=== PATIENT | female | born 1960 | race Caucasian/White ===

== ENCOUNTER 2019-06-19 14:15 | Outpatient (CLI) | payer BC, SELFPAY ==
--- NOTE | 2019-06-19 14:31 | XR_ITS ---
WS: [id number] Right knee, 3 views, 06/19/2019 Clinical Data: R KNEE PAIN INJURY Comparison: Right knee, 02/07/2011. Findings: No fractures or dislocations are seen. There is medial joint compartment narrowing with osteoarthriti c spurs of the medial femoral condyle and the medial tibial plateau. There is a small posterior super ior spur of the patella. The patella is intact. The soft tissues are unremarkable. XR/XR knee RT 3V* [id number] Impression: 1. Moderate osteoarthritis of the right knee with medial joint compartment narr owing and a posterior patellar spur. 2. Negative for fracture.
== END 2019-06-19 14:16 | disposition home or self-care (01) ==
PROVIDERS: Family Provider Family Medicine; PCP Family Medicine; Visit Provider Family Medicine
DX: M17.11 Unilateral primary osteoarthritis, right knee (principal); M25.561 Pain in right knee
CPT/HCPCS: 73562

== ENCOUNTER 2019-06-24 07:36 | Outpatient (CLI) | payer BC, SELFPAY ==
--- NOTE | 2019-06-24 09:11 | MR_ITS ---
WS: [id number] MRI RIGHT KNEE NONCONTRAST TECHNIQUE: Axial PD, coronal PD fat sat, coronal PD, sagittal PD, and sagittal PD fat-sat images obta ined. CLINICAL INFORMATION: KNEE INJURY, KNEE PAIN RIGHT COMPARISON: None. FINDINGS: Normal anterior cruciate ligament. Normal PCL. Moderate suprapatellar effusion. Mild prepatellar and infrapatellar soft tissue edema. Distal quadriceps and patella tendons are intact. Prior postoperative changes medial meniscus with blunting of the posterior horn. Chronic thinning of the medial meniscus. Horizontal tear anterior horn lateral meniscus extending to the articular surfac e. Hypertrophic changes along the joint line. Medial and lateral collateral ligaments are intact. Mod erate chondromalacia patella. Hypertrophic patella. No subchondral edema. MR/MR knee RT wo con* [id number] IMPRESSION: 1. Anterior and posterior cruciate ligaments are intact. 2. Horizontal tear involving the anterior horn lateral meniscus extending to t he articular surface. 3. Prior medial meniscectomy. Chronic thinning of the medial meniscus. 4. Tiny amount of subchondral edema involving the medial joint articular surfa katie. Moderate to advanced chondromalacia medial joint compartment. 5. Moderate chondromalacia patella.
== END 2019-06-24 07:37 | disposition home or self-care (01) ==
LOC: RADSHAW 07:40
PROVIDERS: Family Provider Family Medicine; PCP Family Medicine; Visit Provider Family Medicine
DX: S83.281A Other tear of lateral meniscus, current injury, right knee, initial encounter (principal); X58.XXXA Exposure to other specified factors, initial encounter; M94.261 Chondromalacia, right knee; M25.561 Pain in right knee
CPT/HCPCS: 73721

== ENCOUNTER 2019-08-13 07:32 | Day surgery (SDC) | payer BC, SELFPAY ==
[2019-08-12 10:55] VITALS: BMI 42.9
[2019-08-13] VITALS (13 sets, daily range): BP systolic 117–172; BP diastolic 74–109; PULSE 70–83; RESP 10–18; TEMP 36.2–37.1; O2SAT 92–98
[2019-08-13 08:18] LABS: Glucose Point of Care 166 mg/dL (70-110)
[2019-08-13] MEDS: lidocaine 1% INJ 20 mL INTRADERMA (08:25)
[2019-08-13] MEDS: sodium chloride 0.9% 1,000 ML 30 ML IV (08:26)
--- NOTE | 2019-08-13 08:40 | ANES.PREANE2 ---
Pre-Anesthetic Assessment Pre-Anesthetic Assessment: Height/Weight: Height 1.68 m Weight 120.656 kg Temp Pulse Resp BP Pulse Ox 98.7 F 70 18 144/91 95 08/13/19 07:44 08/13/19 07:44 08/13/19 07:44 08/13/19 07:44 08/13/19 07:44 Preop Diagnosis: Right knee lateral meniscus tear Proposed Procedure: Operation Date: 08/13/19 09:00 Proposed Procedures p Right knee arthroscopy with lateral meniscectomy 00204 S83.281A(Right) - Maurilio Avilez DO Last intake: Intake Last Liquid Date 08/12/19 Last Solid Date 08/12/19 Last Intake: 12:00 Social: Social History: No alcohol and No tobacco Exam: Pre-Anes Outpt Exam: alert, oriented x 3, clear to auscultation bilaterally and regular rate & rhythm Airway: Submandibular: WNL Cervical ROM: WNL MP: 2 Additional comments: previoius cervical spine fusion History/ROS: No significant history except as noted CV/HEM: CV/HEM: HTN GI: GI: GERD Metabolic: Metabolic: DM Neuropsych: Neuropsych: Anxiety and Depression Anesthetic Plan: ASA status: 3 Anesthesia: Anesthesia Evaluation and General Risk of > 500 ml blood loss (7ml/kg in children): No Meds/Allergies Current Medications: Current Medications Generic Name Dose Route Start Last Admin Trade Name Freq PRN Reason Stop Dose Admin Sodium Chloride 1,000 mls @ 30 ml s/hr 08/13/19 07:45 08/13/19 08:26 Sodium Chloride 0.9% IV 08/14/19 07:44 30 mls/hr .Q24H JUNIOR Administration Lidocaine HCl 0.1 ml 08/13/19 07:43 08/13/19 08:25 Lidocaine 1% INTRADERMA 08/14/19 07:42 0.1 ml PRN PRN Administration anesthetic prior to IV start Data Anesthesia Other Labs: Laboratory Results - last 48 hr 08/13/19 08:15 POC Glucose 166 Cardiac Studies: No Data to Display
--- NOTE | 2019-08-13 08:59 | W.PM.OPSUD ---
Surgery/Procedure H&P Update DATE OF PROCEDURE: August 13, 2019 DATE H&P PERFORMED: 08/05/19 H&P UPDATE INFORMATION: I have reviewed H&P completed within last 30 days, I have examined patient prior to procedure and No changes to prior documentation PREOP DIAGNOSIS: Right knee lateral meniscus tear PRIMARY INDICATION FOR PROCEDURE: as above PLANNED PROCEDURE: Operation Date: 08/13/19 09:00 Proposed Procedures p Right knee arthroscopy with lateral meniscectomy 63400 S83.281A(Right) - Maurilio Avilez DO
--- NOTE | 2019-08-13 09:01 | P.OP_ITS ---
Operative Report Date of procedure: August 13, 2019 Pre-op Diagnosis: Right knee lateral meniscus tear Post-op diagnosis: other Post-op Diagnosis: Right knee medial and lateral meniscal tears Post-op Findings: Grade 3 to early grade 4 changes on medial femoral condyle and medial tibial plateau Significant fraying with displacement of fibers into the joint of the medial meniscus at its midportion. Anterior and posterior cruciate ligaments intact both visually probe Significant free edge fraying beginning at the posterior horn extending to the anterior horn of the lateral meniscus articular cartilage well preserved and lateral compartment patellofemoral cartilage well preserved. Moderate synovitis throughout the knee joint. No loose bodies encountered. Procedure Done: Diagnostic arthroscopy right knee with section of medial and lateral meniscal tears Implants: none Pathology: none sent Surgeon: Maurilio Avilez Anesthesia: General Estimated blood loss (mL): 5 Tourniquet time (min): 35 (At 300 mmHg pressure) Complications: No apparent complications. Condition: stable Disposition: PACU Brief History: 59-year-old white female with chronic right knee pain. In the past she is undergone 2 arthroscopies for medial meniscal tears. Plain film x- ray she has joint space narrowing medially but not [id number]. She is undergone an MRI which shows some arthritic change as well as an anterior horn tear of the lateral meniscus. Physical examination suggestive of meniscal pathology both medially and laterally. Patient is failed conservative treatment with activity modification and oral analgesics. Risk, benefits potential complications are discussed the patient. Risks include are not limited to: Failure of all pain, infection, nerve/blood vessel/injury, blood clots, heart attack, stroke risk up to including . All questions answered patient agreeable to proceed with surgery. Procedure: 1.5 g Zinacef
[2019-08-13] MEDS: cefUROXime 1,500 MG in sodium chloride 0.9% (plus) 50 ML 100 MG IV (09:17)
[2019-08-13] MEDS: midazolam 1 mg/mL INJ 2 mL 2 MG IVP (09:27)
[2019-08-13] MEDS: EPINEPHrine 1 mg/mL INJ 3 MG XX (09:43)
[2019-08-13] MEDS: triamcinolone 40 mg/mL SDV IM (09:43)
[2019-08-13] MEDS: neomycin-poly-bacitracin oint 28 gm 1 APPLIC TOPICAL (10:06)
[2019-08-13] MEDS: fentaNYL 50 mcg/mL INJ 2mL IVP (10:40)
[2019-08-13] MEDS: oxyCODONE-APAP 5-325 mg Tablet 1 TAB PO (11:31)
== END 2019-08-13 12:22 | disposition home or self-care (01) ==
PROVIDERS: PCP Family Medicine; Visit Provider Orthopaedic Surgery
PROC: (CPT 29870; principal; 2019-08-13 09:00)
DX: S83.281A Other tear of lateral meniscus, current injury, right knee, initial encounter (principal); S83.241A Other tear of medial meniscus, current injury, right knee, initial encounter; I10 Essential (primary) hypertension; K21.9 Gastro-esophageal reflux disease without esophagitis; E11.9 Type 2 diabetes mellitus without complications
CPT/HCPCS: 29880; 12345; 36416; 82962; 96365; 96372; 96374; J0131; J0171; J0697; J1885; J2001; J2250; J2405; J2704; J2795; J3010; J3301; J7030

== ENCOUNTER 2019-09-02 14:43 | Outpatient (CLI) | payer BC, SELFPAY | END 2019-09-02 14:44 | disposition home or self-care (01) | LOC: SPT 14:43 | PROVIDERS: PCP Family Medicine; Visit Provider Orthopaedic Surgery | DX: Z46.89 Encounter for fitting and adjustment of other specified devices (principal); S83.281D Other tear of lateral meniscus, current injury, right knee, subsequent encounter; X58.XXXD Exposure to other specified factors, subsequent encounter | CPT/HCPCS: 97760; L1812 ==

== ENCOUNTER → 2020-01-25 10:23 | Outpatient (BNVA) | payer BC, SELFPAY | PROVIDERS: PCP Family Medicine; Visit Provider Nurse Practitioner Family | DX: I50.30 Unspecified diastolic (congestive) heart failure (principal); I10 Essential (primary) hypertension | CPT/HCPCS: 80048; 83880 ==

== ENCOUNTER 2020-02-01 08:00 | Outpatient (CLI) | payer BC, SELFPAY ==
--- NOTE | 2020-02-01 08:30 | ECG_ITS ---
[facility] Test Date: 2020-02-01 Pat Name: Sunitha Rose Department: Room: Gender: Female Senior Director Of Strategy: Natacha Mccormick : 1960 Requested By: Nuris Siddiqui Order Number: [id number] Prince MD: MARY ALICE MANDUJANO Interpretive Statements NAME OF STUDY: LEXISCAN SESTAMIBI STRESS TEST INDICATION: Chest Pain NOTE: Please note that this is the electrocardiogram portion of the Lexiscan/Sestamibi stress test. The perfusion scan will be documented separately. DATA: Baseline heart rate was 83 beats per minute. Baseline blood pressure was 144/87 millimeters of mercury. Target heart rate was 163. Maximum heart rate achieved was 90. which was 55 % of the predicted target heart rate. Maximum blood pressure was 162/91 millimeters of mercury. The reason for ending the test was completion of the protocol. The patient did not experience any symptoms. ELECTROCARDIOGRAM: BASELINE: Sinus rhythm. Normal axis. Otherwise, no ST-T changes suggestive of ischemia noted. No arrhythmia noted. EXERCISE: After Lexiscan injection, no ST-T changes suggestive of ischemic noted. No arrhythmia noted. 1. EKG not suggestive of ischemia 2. Lexiscan injection unremarkable. 3. Perfusion scan will be documented separately. Electronically Signed On 02-19-2020 15:15:29 VEHICLE CARE SPECIALIST by MARY ALICE MANDUJANO [email or web address]
--- NOTE | 2020-02-01 08:32 | NMCV_ITS ---
NM eugenio perf SPECT r/s* [id number] Sunitha Rose Age: 59 Gender: F : 1960 Exam Date: 02/01/2020 09:10 Ordering Phys: Nuris Siddiqui Technologist: LILIBETH Mariano Exam Location: [facility] Indications: FATIGUE SHORTNESS OF BREATH STRESS TEST [facility] IMAGE PROTOCOL Rest/Stress 1 Lexiscan Day Radiopharmaceutical Dose (mCi) Administration Site Administered by Rest: Tc-99m 10.6 IV LILIBETH Adan Sestamibi Stress:Tc-99m 32.8 IV LILIBETH Adan Sestamibi Rest: 01-Feb-2020 60 Discovery 630 Stress: 01-Feb-2020 60 Discovery 630 0.4mg Lexiscan. Images obtained in supine and prone position. SPECT RESULTS Technical Quality: Good Raw Data Analysis: Breast attenuation, Soft tissue attenuation Image Corrections: No attenuation or motion correction applied Summed Stress Score: 0 Summed Rest Score: 3 Summed Difference Score: 0 PERFUSION FINDINGS Medium-sized area of fixed perfusion defect with moderate reversibility noted in mid to distal anteroseptal wall suggestive of medium-sized area of old myocardial infarction surrounded by moderate tee-infarct ischemia. Please note that patient was not able to perform the prone images therefore cannot rule out artifact. There is no wall motion abnormality. FUNCTIONAL RESULTS (calculated via Gated SPECT) Stress Image LV EF (%): 67 Stress EDV (mL):116 TID: 1.01 Stress ESV (mL):38 Rest Image LV EF (%): 67 FUNCTIONAL FINDINGS: There is normal left ventricular systolic function. IMPRESSIONS Medium-sized area of fixed perfusion defect with moderate reversibility noted in mid to distal anteroseptal wall suggestive of medium-sized area of old myocardial infarction surrounded by moderate tee-infarct ischemia. Please note that patient was not able to perform the prone images therefore cannot rule out artifact. There is no wall motion abnormality. Escobar Roche MD (Electronically Signed) Final Date: 01 February 2020 13:17 S
[2020-02-01 08:33] VITALS: BMI 45.1
[2020-02-01 10:00] VITALS: BP 149/86; PULSE 85
[2020-02-01] MEDS: regadenoson 0.4 Mg/5 ml Syringe IVP (10:00)
== END 2020-02-01 08:01 | disposition home or self-care (01) ==
LOC: CDL 08:08
PROVIDERS: PCP Family Medicine; Visit Provider Nurse Practitioner Family
DX: R53.83 Other fatigue (principal); R06.02 Shortness of breath
CPT/HCPCS: 78452; 93017; A9500; J2785

== ENCOUNTER → 2020-02-15 09:27 | Outpatient (BNVA) | payer BC, SELFPAY | PROVIDERS: PCP Family Medicine; Visit Provider Internal Medicine Cardiovascular Disease | DX: I50.32 Chronic diastolic (congestive) heart failure (principal); Z20.828 Contact with and (suspected) exposure to other viral communicable diseases; Z11.59 Encounter for screening for other viral diseases; I50.30 Unspecified diastolic (congestive) heart failure | CPT/HCPCS: 80048; 85025; 85610; 87635 ==

== ENCOUNTER 2020-02-18 07:41 | Day surgery (SDC) | payer BC, SELFPAY ==
[2020-02-18] VITALS (16 sets, daily range): BP systolic 112–155; BP diastolic 55–117; PULSE 66–84; RESP 13–23; TEMP 36.2; O2SAT 91–99; BMI 45.6
--- NOTE | 2020-02-18 08:00 | XACV_ITS ---
Ht: 168 cm Wt: 128 kg BSA: 2.52 m2 Gender: Female : 1960 Any Known Allergies: Other Exam Priority: Routine Procedure(s): Procedure Description: Diagnostic procedure Procedure Description: Right Heart Catheterization Procedure Description: O2 saturation Procedure Description: Coronary Angiography Procedure Description: Pressure Wire Diagnostic Cath Status: Elective Conclusions 1. Right heart cathMildly elevated right-sided filling pressure RA mean 12 limit of mercuryNormal RV pressure 28/ 0 mmHgNormal PA pressure 24 mmHg PA mean. 2. FFR: After equalizing the distal and proximal pressure of FFR wire proximal to the lesion, Prox RCA lesion was crossed with FFR wire. IV adenosine at rate of 140 mcg/min was started. Patient did not compliant of any symptoms, at then end of two minutes FFR was recorded as, which is not significant . 3. Indication for left and right heart cath 4. , unexplained shortness of breath despite of 5. optimization of medicine. Abnormal stress test. Recommendations * Usual post-cath care. Diagnostic RX Recommendation: medical therapy and/or counseling Pressures Phase:Rest AO : 116 / 79 ( 96 ) @ 3:42:00 AM RV : 28 / 0 / @ 3:35:00 AM PA : 34 / 19 ( 24 ) @ 3:33:00 AM RA : a wave = v wave = mean = 12 @ 3:36:00 AM O2 Content Phase:Rest PA : O2 Content O2: 61.4 @ 3:42:00 AM Saturations Phase:Rest RA : 60 @ 3:37:00 AM RV : 61 @ 3:33:00 AM PA : 61 @ 3:42:00 AM Clinical Evaluation EBL: 5mL-10mL Procedural Details Procedure Consent Obtained. Pre-Procedure Time Out. Identified patient by full name and date of as verbalized by the patient/guarantor. Does the consent match the physician's order: Yes. Accurate & Complete Informed Consent: Yes. Inpatient/Outpatient History & Physical on Chart: Yes. If H&P is completed, is and addenduem needed: No; If yes, is the addendum complete: N/A. Visualize and Verify Site with Patient/Guarantor: N/A. Relevant Radiology Images available: N/A. Pre-op teaching completed and patient verbalized understanding. The risks, benefits, and alternatives of sedation and/or procedure were discussed by physician. The patient agrees to continue. Procedure started. [facility] Clinical Fraility Score: 3: Managing Well. Market Research Assistant Indications: Worsening Angina, abnormal stress test, SOB. Chest Pain Symptom Assessment: Atypical Angina. Cardiovascular Instability: No. Correct patient, site and procedure confirmed by cath team. PERRLA. Strong, equal hand ibm bpm architect bilaterally. Lungs clear x 5 lobes. IV Site on Arrival: 20 gauge in the right anticubital. IV Site on Arrival: 20 gauge in the left anticubital. IV Fluids: 0.9% NaCl at KVO. 0 mL infused prior to manager lab. Pre Procedural Pulses: bilateral dorsalis pedis was 3+. Pre Procedural Pulses: bilateral posterior tibial was 3+. Pre Procedural Pulses: right radial was 1+. Pre Procedural Pulses: left radial was 3+. bilateral groins was prepped with chloroprep then draped in the usual sterile fashion. right radial was prepped with chloroprep then draped in the usual sterile fashion. right brachial was prepped with chloroprep then draped in the usual sterile fashion. Equipment: 6F - Radial. Cardiac Cath Pack. ACIST Manifold Kit Model BT 2000. Heparinized Saline (2 units/mL), 1000 mL bag. Physician notified. Baseline sample Acquired. HR: 64 BPM. Physician arrived. Physician scrubbed in. Immediate Pre-Procedure Time Out. Correct Patient: Yes; Correct Procedure: Yes; Correct Site: Yes; Correct Patient Position: Yes; Correct Supplies: Yes; Dried Flammable Prep: Yes; Blood Products Available: N/A;. Lidocaine 1% infiltrated to the right brachial. Wire inserted through IV catheter in right brachial vein. IV Catheter removed over wire. [place] MON catheter inserted. [place] out. Lidocaine 1% infiltrated to the right radial. Arterial access obtained. A [employer] 5 Fr Robert Radial Catheter, 110cm was advanced over the wire and used for Left coronary angiography. Multiple views taken of left coronary artery. Catheter redirected to the RCA. Catheter out. Inventory is CRD 6FR AL .75 GUIDE. 6 guamanian AL 0.75 guide catheter was inserted over the wire. FFR guidewire was advanced through the guide catheter to lesion in the prox RCA. Wire out. Guide catheter out. Sheath flushed periodically to maintain patency. Physician scrubbed out. A Manual Compression was successful obtaining hemostatsis at the Right Brachial Vein insertion site. A TR Band was successful obtaining hemostatsis at the Right Radial artery insertion site. TR band placed. Hemostasis obtained. Post Procedure: Pulses reassessed and unchanged. PERRLA. Strong, equal hand ibm bpm architect bilaterally. No VTE prophylaxis required. Medication's Wasted: Lidocaine 1% = 8 mL. Medication's Wasted: Heparin = 1000 units. Medication's Wasted: Other = adenosine 54 mg. Total IV fluids: 75 mL. Contrast type used: Omnipaque 300 mgI/mL, 500 mL bottle. Post-op diagnosis: non obstructive CAD. Complications: none. Estimated blood loss: 5mL-10mL. Procedure completed. Patient transferred by wheelchair to CPRU. Vital chart was stopped. Access Site Site: Right Brachial Vein Sheath Size: 6 Fr Hemostasis Method: Manual Compression Hemostasis Success: Successful Site: Right Radial artery Sheath Size: 6 Fr Hemostasis Method: TR Band Hemostasis Success: Successful Procedure Medications Start: 9:04 AM Stop: 9:04 AM Medication: Fentanyl Amount: 50 mcg Route: I.V. Start: 9:19 AM Stop: 9:19 AM Medication: Versed Amount: 1 mg Route: I.V. Start: 9:24 AM Stop: 9:24 AM Medication: Versed Amount: 1 mg Route: I.V. Start: 9:26 AM Stop: 9:26 AM Medication: Fentanyl Amount: 50 mcg Route: I.V. Start: 9:34 AM Stop: 9:34 AM Medication: Versed Amount: 1 mg Route: I.V. Start: 9:38 AM Stop: 9:38 AM Medication: Versed Amount: 1 mg Route: I.V. Start: 9:42 AM Stop: 9:42 AM Medication: Heparin Amount: 5000 units Route: I.V. Start: 9:47 AM Stop: 9:47 AM Medication: Versed Amount: 1 mg Route: I.V. Start: 9:59 AM Stop: 9:59 AM Medication: Versed Amount: 1 mg Route: I.V. I, the attending physician, have reviewed and verified all procedure medications. Yes, all medications given per verbal order History/Risk Factors Hypertension: Yes Dyslipidemia: No Peripheral Arterial Disease (PAD): No Myocardial Infarction (TX): No Obesity: Yes Renal Disease: No Tobacco Use: Never Prior Interventions PCI: No CABG: No Valve Surgery: No Report Signatures Finalized by Escobar Roche MD on 03/03/2020 05:03 PM
[2020-02-18] MEDS: diphenhydrAMINE 50 mg Capsule PO (08:30)
--- NOTE | 2020-02-18 09:21 | W.PM.OPSUD ---
Surgery/Procedure H&P Update DATE OF PROCEDURE: February 18, 2020 DATE H&P PERFORMED: 02/04/20 H&P UPDATE INFORMATION: I have reviewed H&P completed within last 30 days, I have examined patient prior to procedure and No changes to prior documentation PREOP DIAGNOSIS: Abnormal stress test, chest pain, worsening of shortness of breath PLANNED PROCEDURE: Operation Date: 02/18/20 08:30 Proposed Procedures p Cardiac Catheterization(Bilateral) - Escobar Roche MD PATIENT REASSESSED PRIOR TO SEDATION, WITH NO CHANGE NOTED: Yes PHYSICAL EXAM: alert, oriented x 3, clear to auscultation bilaterally and regular rate & rhythm AIRWAY EVAL/ANESTHESIA PLAN: ASA II, Risks, benefits & alternatives of sedation and/or procedure discussed and Patient agrees to continue as planned
--- NOTE | 2020-02-18 10:15 | PC.NURSE ---
recovery note received patient back from equipment operator/laborer via wheelchair s/p diagnostic lhc via radial approach. pt ambulated to bed without incident. pt drowsy but a&o x3. monitor car operator placed and vital signs obtained. right wrist with tr band intact. no bleeding or hematoma noted. palpable right radial pulse. verbal instructions given to patient about activity restrictions with right wrist. pt verbalized understanding. no other assessment changes noted at this time. will continue to monitor.
--- NOTE | 2020-02-18 11:00 | USCV_ITS ---
Sunitha Rose Age: 59 Gender: F : 1960 Exam Date: 02/18/2020 11:39 Ordering Phys: Escobar Roche MD ([email or web address]) Technologist: Ashley James Exam Location: [facility] [place] Indication: SOB BP: 121 / 73 HR: 66 Rhythm: Sinus Technical Quality: Technically difficult study MEASUREMENTS (Male / Female) Normal Values 2D ECHO LV Chamber Size 4.8 cm RV Chamber Size 2.1 cm LVOT Diameter 2.0 cm LA Diameter 3.8 cm LA Width 2.7 cm LA Height 4.8 cm RA Width 2.7 cm RA Height 3.7 cm Aorta at Sinotubular Diameter 3.3 cm M-MODE LV Diastolic Diameter MM 4.9 cm 4.2 - 5.9 / 3.9 - 5.3 cm LV Systolic Diameter MM 2.7 cm LV Ejection Fraction MM Teich 76.6 % IVS Diastolic Thickness MM 1.6 cm 0.6 - 1.0 / 0.6 - 0.9 cm IVS Systolic Thickness MM 1.8 cm LVPW Diastolic Thickness MM 1.3 cm 0.6 - 1.0 / 0.6 - 0.9 cm LVPW Systolic Thickness MM 1.5 cm Aortic Annulus Diameter 3.2 cm LA Ao Ratio MM 1.3 MV E Point Septal Separation 0.6 cm DOPPLER AV Peak Velocity 106.0 cm/s LVOT Peak Velocity 79.0 cm/s AV Area Cont Eq vti 2.9 cm squared AV Area Cont Eq pk 2.4 cm squared MV Area PHT 4.0 cm squared Mitral E to A Ratio 1.0 MV E' Velocity 37.5 cm/s Mitral E to MV E' Ratio 12.5 Mitral E to LV E' Lateral Ratio 15.2 Mitral E to LV E' Septal Ratio 10.8 TV Peak E Velocity 53.0 cm/s PV Peak Velocity 55.0 cm/s FINDINGS Left Ventricle Normal left ventricular cavity size. Moderate left ventricular hypertrophy of concentric type. No regional wall motion abnormalities. Left ventricular ejection fraction is estimated at 60 %. Grade I/IV diastolic dysfunction (abnormal relaxation filling pattern), normal to mildly elevated filling pressures. Right Ventricle The right ventricle is normal in size and function. RVSP could not be calculated due to incomplete tricuspid regurgitation velocity profile. Right Atrium The right atrium is normal in size. Left Atrium The left atrium is normal in size. Mitral Valve Structurally normal mitral valve without significant stenosis or prolapse. There is no mitral regurgitation. Aortic Valve Mild aortic valve calcification. No aortic valve stenosis. Trace aortic valve regurgitation. Tricuspid Valve Trace tricuspid valve regurgitation. Pulmonic Valve Structurally normal pulmonic valve without significant stenosis. There is no pulmonic regurgitation. Pericardium Normal pericardium without effusion. Aorta Normal ascending aorta dimension. CONCLUSIONS 1-Normal left ventricular cavity size. Moderate left ventricular hypertrophy of concentric type. No regional wall motion abnormalities. Left ventricular ejection fraction is estimated at 60 %. Grade I/IV diastolic dysfunction (abnormal relaxation filling pattern), normal to mildly elevated filling pressures. 2-There is no pericardial effusion. 3-No significant chamber abnormalities. 4-The right ventricle is normal in size and function. RVSP could not be calculated due to incomplete tricuspid regurgitation velocity profile. 5-Right atrial pressure is around 5 mm of mercury. 6-No significant change since the prior echocardiogram study of 10/26/2013. Escobar Roche MD (Electronically Signed) Final Date: 18 February 2020 17:47 S
--- NOTE | 2020-02-18 11:15 | PC.NURSE ---
tr band vitals taken and stable. tr band intact and dry. 1 ml of air removed to begin removal of tr band.
--- NOTE | 2020-02-18 12:16 | USCV_ITS ---
Sunitha Rose Age: 59 Gender: F : 1960 Exam Date: 02/18/2020 11:39 Ordering Phys: Escobar Roche MD Technologist: Ashley James Exam Location: [facility] – [place] Indication: SOB BP: 121 / 73 HR: 66 Rhythm: Sinus Technical Quality: Technically difficult study MEASUREMENTS (Male / Female) Normal Values 2D ECHO LV Chamber Size 4.8 cm RV Chamber Size 2.1 cm LVOT Diameter 2.0 cm LA Diameter 3.8 cm LA Width 2.7 cm LA Height 4.8 cm RA Width 2.7 cm RA Height 3.7 cm Aorta at Sinotubular Diameter 3.3 cm M-MODE LV Diastolic Diameter MM 4.9 cm 4.2 - 5.9 / 3.9 - 5.3 cm LV Systolic Diameter MM 2.7 cm LV Ejection Fraction MM Teich 76.6 % IVS Diastolic Thickness MM 1.6 cm 0.6 - 1.0 / 0.6 - 0.9 cm IVS Systolic Thickness MM 1.8 cm LVPW Diastolic Thickness MM 1.3 cm 0.6 - 1.0 / 0.6 - 0.9 cm LVPW Systolic Thickness MM 1.5 cm Aortic Annulus Diameter 3.2 cm LA Ao Ratio MM 1.3 MV E Point Septal Separation 0.6 cm DOPPLER AV Peak Velocity 106.0 cm/s LVOT Peak Velocity 79.0 cm/s AV Area Cont Eq vti 2.9 cm squared AV Area Cont Eq pk 2.4 cm squared MV Area PHT 4.0 cm squared Mitral E to A Ratio 1.0 MV E' Velocity 37.5 cm/s Mitral E to MV E' Ratio 12.5 Mitral E to LV E' Lateral Ratio 15.2 Mitral E to LV E' Septal Ratio 10.8 TV Peak E Velocity 53.0 cm/s PV Peak Velocity 55.0 cm/s FINDINGS Left Ventricle Normal left ventricular cavity size. Moderate left ventricular hypertrophy of concentric type. No regional wall motion abnormalities. Left ventricular ejection fraction is estimated at 60 %. Grade I/IV diastolic dysfunction (abnormal relaxation filling pattern), normal to mildly elevated filling pressures. Right Ventricle The right ventricle is normal in size and function. RVSP could not be calculated due to incomplete tricuspid regurgitation velocity profile. Right Atrium The right atrium is normal in size. Left Atrium The left atrium is normal in size. Mitral Valve Structurally normal mitral valve without significant stenosis or prolapse. There is no mitral regurgitation. Aortic Valve Mild aortic valve calcification. No aortic valve stenosis. Trace aortic valve regurgitation. Tricuspid Valve Trace tricuspid valve regurgitation. Pulmonic Valve Structurally normal pulmonic valve without significant stenosis. There is no pulmonic regurgitation. Pericardium Normal pericardium without effusion. Aorta Normal ascending aorta dimension. CONCLUSIONS 1-Normal left ventricular cavity size. Moderate left ventricular hypertrophy of concentric type. No regional wall motion abnormalities. Left ventricular ejection fraction is estimated at 60 %. Grade I/IV diastolic dysfunction (abnormal relaxation filling pattern), normal to mildly elevated filling pressures. 2-There is no pericardial effusion. 3-No significant chamber abnormalities. 4-The right ventricle is normal in size and function. RVSP could not be calculated due to incomplete tricuspid regurgitation velocity profile. 5-Right atrial pressure is around 5 mm of mercury. 6-No significant change since the prior echocardiogram study of 10/26/2013. Escobar Roche MD Edited by: CV Liquor Gallery Operator (Electronically Signed) Final Date: 18 February 2020 17:47 Amended: 23 February 2020 13:19 C
== END 2020-02-18 13:53 | disposition home or self-care (01) ==
PROVIDERS: PCP Family Medicine; Visit Provider Internal Medicine Cardiovascular Disease
DX: R94.39 Abnormal result of other cardiovascular function study (principal); R07.9 Chest pain, unspecified; R06.02 Shortness of breath; E66.9 Obesity, unspecified; Z68.42 Body mass index [BMI] 45.0-49.9, adult; I11.0 Hypertensive heart disease with heart failure; I50.30 Unspecified diastolic (congestive) heart failure; G47.33 Obstructive sleep apnea (adult) (pediatric); E11.9 Type 2 diabetes mellitus without complications; Z79.84 Long term (current) use of oral hypoglycemic drugs
CPT/HCPCS: 12345; 36415; 93306; 93456; 93571; C1751; C1769; C1887; C1894; J0153; J1644; J2250; J3010; J3490; J7030; Q0163; Q9967

== ENCOUNTER → 2020-02-25 10:25 | Outpatient (BNVA) | payer BC, SELFPAY | PROVIDERS: PCP Family Medicine; Visit Provider Nurse Practitioner Family | DX: I10 Essential (primary) hypertension (principal); Z13.220 Encounter for screening for lipoid disorders | CPT/HCPCS: 80048; 80061 ==

== ENCOUNTER → 2020-03-09 19:12 | Outpatient (BNVA) | payer BC, SELFPAY | PROVIDERS: PCP Family Medicine; Visit Provider Internal Medicine Cardiovascular Disease | DX: R94.39 Abnormal result of other cardiovascular function study (principal) | CPT/HCPCS: 87635 ==

== ENCOUNTER 2020-03-14 07:11 | Outpatient (CLI) | payer BC, SELFPAY ==
--- NOTE | 2020-03-14 12:40 | PFTS_ITS ---
Date of Study:03/14/20 Date of Dictation: MECHANICS: Forced vital capacity (FVC) is normal. Forced expiratory volume in one second (FEV1) is . FEV1/FVC is normal. FLOW VOLUME LOOP: Normal. LUNG VOLUMES: Total lung capacity (TLC) is normal. Residual volume (RV) is normal. DIFFUSING CAPACITY FOR CARBON MONOXIDE: Normal. INTERPRETATION: The pulmonary function tests are normal. Lung volumes are normal. Gas exchange (DLCO) is normal. MTDD
== END 2020-03-14 07:12 | disposition home or self-care (01) ==
LOC: RT 07:14
PROVIDERS: PCP Family Medicine; Visit Provider Internal Medicine Cardiovascular Disease
DX: R06.02 Shortness of breath (principal)
CPT/HCPCS: 94010; 94726; 94729

== ENCOUNTER → 2020-07-05 14:58 | Outpatient (BNVA) | payer BC, SELFPAY | PROVIDERS: PCP Family Medicine; Referring Provider Family Medicine; Visit Provider Internal Medicine | DX: E11.9 Type 2 diabetes mellitus without complications (principal); E66.01 Morbid (severe) obesity due to excess calories; Z68.41 Body mass index [BMI] 40.0-44.9, adult; E78.5 Hyperlipidemia, unspecified | CPT/HCPCS: 99204 ==

== ENCOUNTER 2020-07-11 07:52 | Outpatient (CLI) | payer BC, SELFPAY ==
--- NOTE | 2020-07-11 08:45 | MR_ITS ---
WS: [id number] MRI BRAIN WITHOUT CONTRAST HISTORY: TREMOR OF LEFT HAND COMPARISON: CT head 07/22/2013 TECHNIQUE: Diffusion imaging, multiplanar T1, T2 and FLAIR imaging obtained. Mild limitation due to quality secondary to motion artifact. No evidence for acute infarct or hemorrhage. Lee-white matter differentiation is normal. Normal widt h of the pars compacta. No iron deposition noted in the putamen. There are a few areas of increased signal in the periventricular white matter. No thinning of the cor pus callosum. No significant atrophy or volume loss otherwise. Ventricles and extra-axial spaces are normal. No inferior displacement of cerebellar tonsils. The sella turcica and pituitary gland are unremarkabl e. Posterior fossa is also unremarkable. Dural venous sinuses and [place] demonstrate no abnormality on this unenhanced studies. Paranasal sinuses: Clear. Mastoid air cells: Normal. Calvarium and scalp: Intact. MR/MR head wo con* [id number] IMPRESSION: 1. No acute infarct or hemorrhage. 2. No iron deposition in the putamen and normal width of the pars compacta. 3. Mild chronic microvascular ischemic type changes.
== END 2020-07-11 07:53 | disposition home or self-care (01) ==
LOC: RADWPI 08:00
PROVIDERS: PCP Family Medicine; Visit Provider Surgery Surgical Critical Care
DX: R25.1 Tremor, unspecified (principal); I67.82 Cerebral ischemia
CPT/HCPCS: 70551

== ENCOUNTER 2020-09-06 18:06 | Outpatient (CLI) | payer BC, SELFPAY ==
--- NOTE | 2020-09-06 18:16 | XR_ITS ---
WS: [id number] Left hand, 3 views, 09/06/2020 Clinical Data: LT. HAND PAIN Comparison: Left wrist, 11/18/2014. Findings: No fractures or dislocations are seen. The soft tissues are unremarkable. The joint spaces are normal XR/XR hand LT min 3V* [id number] Impression: Negative left hand.
--- NOTE | 2020-09-06 18:19 | XR_ITS ---
WS: [id number] Left ankle, 3 views, 09/06/2020 Clinical Data: LT. ANKLE PAIN Comparison: None. Findings: No fractures or dislocations are seen. The ankle mortise is normal. The talus and calcaneus are unrem arkable. There is soft tissue swelling over the lateral malleolus. There is a plantar spur and an Ach illes spur. XR/XR ankle LT min 3V* [id number] Impression: 1. Negative for left ankle fracture. 2. Soft tissue swelling over lateral malleolus.
--- NOTE | 2020-09-06 18:19 | XR_ITS ---
WS: [id number] Left foot, 3 views, 09/07/2020 Clinical Data: LT. FOOT PAIN Comparison: None. Findings: No fractures or dislocations are seen. No bone destruction or erosion is noted. The joint spaces and soft tissues are normal. There is sclerosis in the left first proximal phalanx which may be an enchondroma. There is a plantar spur and an Achilles spur. XR/XR foot LT min 3V* [id number] Impression: Negative left foot.
== END 2020-09-06 18:07 | disposition home or self-care (01) ==
PROVIDERS: PCP Family Medicine; Visit Provider Family Medicine
DX: M25.572 Pain in left ankle and joints of left foot (principal); M79.672 Pain in left foot; M79.89 Other specified soft tissue disorders; M79.642 Pain in left hand
CPT/HCPCS: 73130; 73610; 73630

== ENCOUNTER 2020-12-23 06:25 | Outpatient (CLI) | payer BC, SELFPAY ==
[2020-12-23 07:15] LABS: Estmated Average Glucose 143; Hemoglobin A1C 6.6 % (4.0-6.0)
[2020-12-23 07:22] LABS: Alanine Aminotransferase 20 U/L (0-33); Albumin Level 4.1 g/dL (3.5-5.2); Alkaline Phosphatase 77 IU/L (35-105); Anion Gap 16.8 (5-19); Aspartate Amino Transferase 24 U/L (0-32); Blood Urea Nitrogen 15 mg/dL (6-20); Calcium 9.2 mg/dL (8.5-10.5); Carbon Dioxide 29 mmol/L (22-29); Chloride 96 mmol/L (98-107); Chol HDL Ratio 2.86 mg/dL (0.0-4.40); Cholesterol 169 mg/dL (0-200); Globulin 3.1 g/dL (1.3-4.6); Glomerular Filtration Rate 102.7 mL/min (90-130); Glucose 165 mg/dL (65-115); HDL Cholesterol 59 mg/dL (60-100); LDL Cholesterol Calculated 75 mg/dL (50-129); LDL HDL Ratio 1.27 RATIO (0.00-3.22); Osmolality Calculated 291 mOsm/kg (285-295); Potassium 3.8 mmol/L (3.5-5.1); Sodium 138 mmol/L (136-145); Total Bilirubin 0.2 mg/dL (0.15-1.2); Total Protein 7.2 g/dL (6.6-8.7); Triglycerides 177 mg/dL (0-150)
[2020-12-23 07:23] LABS: Creatinine Urine, Random 115 mg/dL (28-217)
[2020-12-23 07:27] LABS: Microalbum Creatinine Ratio Ur 9 mg/dL (0-20); Microalbumin Random Urine < 1 ug/dL (0-20)
== END 2020-12-23 06:26 | disposition home or self-care (01) ==
PROVIDERS: PCP Family Medicine; Visit Provider Internal Medicine
DX: E78.5 Hyperlipidemia, unspecified (principal); E11.9 Type 2 diabetes mellitus without complications
CPT/HCPCS: 36415; 80053; 80061; 82044; 83036

== ENCOUNTER → 2020-12-26 08:18 | Outpatient (BNVA) | payer BC, SELFPAY | PROVIDERS: PCP Family Medicine; Visit Provider Internal Medicine | DX: I10 Essential (primary) hypertension (principal); E11.9 Type 2 diabetes mellitus without complications; E78.5 Hyperlipidemia, unspecified; E66.01 Morbid (severe) obesity due to excess calories; Z68.41 Body mass index [BMI] 40.0-44.9, adult | CPT/HCPCS: 99214 ==

== ENCOUNTER 2021-01-14 09:43 | Emergency (ER) | payer BC, SELFPAY ==
[2021-01-14 09:47] VITALS: BP 142/81; PULSE 72; RESP 18; TEMP 36.8; O2SAT 97; BMI 40.8
--- NOTE | 2021-01-14 09:48 | XRR_ITS ---
PROCEDURE INFORMATION: Exam: XR Right Shoulder Exam date and time: 01/14/2021 9:48 AM Age: 60 years old Clinical indication: Injury or trauma; Fall; Blunt trauma (contusions or hematomas); Shoulder; Right; Additional info: Pain fall TECHNIQUE: Imaging protocol: XR Right shoulder. Views: 2 or more views. Total images: 3 COMPARISON: CR Chest 2 views* [id number] 12/03/2016 6:27 PM FINDINGS: Bones/joints: Partial fusion of the right 1st and 2nd ribs incidentally noted. No acute fracture nor subluxation. No osseous erosion nor periosteal reaction. Soft tissues: Normal. XR/XR shoulder RT min 2V* [id number] IMPRESSION: No acute osseous pathology. Radiation Dose CTDIVOL = (mGy): DLP = (mGy-cm)
--- NOTE | 2021-01-14 09:48 | CTR_ITS ---
PROCEDURE INFORMATION: Exam: CT Cervical Spine Without Contrast Exam date and time: 01/14/2021 9:48 AM Age: 60 years old Clinical indication: Neck pain; Prior surgery; Additional info: Fall, pain TECHNIQUE: Imaging protocol: Computed tomography images of the cervical spine without contrast. Total images: 326 Radiation optimization: All CT scans at this facility use at least one of these dose optimization techniques: automated exposure control; mA and/or kV adjustment per patient size (includes targeted exams where dose is matched to clinical indication); or iterative reconstruction. COMPARISON: MRI Cervical Spine w/o* [id number] 05/07/2018 6:05 PM RADIATION DOSE METRICS: Total DLP (mGy-cm): 866.94 FINDINGS: Bones/joints: C4-7 anterior cervical spine fusion. Plate and screws in place with no evidence of hardware failure. Discs/Spinal canal/Neural foramina: No significant disc protrusion. No severe spinal canal stenosis. No significant neural foraminal narrowing. Lungs: Lung apices are normal. Vasculature: Calcified atherosclerotic plaque is noted at the carotid bifurcations bilaterally. Soft tissues: Unremarkable. CT/CT cervical spin wo con* [id number] IMPRESSION: No acute findings. Radiation Dose CTDIVOL = (mGy): DLP = 866.94 (mGy-cm)
--- NOTE | 2021-01-14 10:06 | CTR_ITS ---
PROCEDURE INFORMATION: Exam: CT Head Without Contrast Exam date and time: 01/14/2021 10:06 AM Age: 60 years old Clinical indication: Injury or trauma; Fall; Blunt trauma (contusions or hematomas); Additional info: Fall/trauma TECHNIQUE: Imaging protocol: Computed tomography of the head without contrast. Total images: 247 Radiation optimization: All CT scans at this facility use at least one of these dose optimization techniques: automated exposure control; mA and/or kV adjustment per patient size (includes targeted exams where dose is matched to clinical indication); or iterative reconstruction. COMPARISON: MR head wo con* [id number] 07/11/2020 8:57 AM RADIATION DOSE METRICS: Total DLP (mGy-cm): 982.02 FINDINGS: Brain: Normal. No hemorrhage. Unremarkable white matter. No mass effect. Cerebral ventricles: No ventriculomegaly. Paranasal sinuses: Visualized sinuses are unremarkable. No fluid levels. Mastoid air cells: Visualized mastoid air cells are well aerated. Orbital cavity: Prior bilateral lens replacements noted. Bones/joints: Unremarkable. No acute fracture. Soft tissues: Unremarkable. CT/CT head wo con* [id number] IMPRESSION: No acute intracranial abnormality. Radiation Dose CTDIVOL = (mGy): DLP = 982.02 (mGy-cm)
--- NOTE | 2021-01-14 10:06 | XRR_ITS ---
PROCEDURE INFORMATION: Exam: XR Right Knee Exam date and time: 01/14/2021 10:06 AM Age: 60 years old Clinical indication: Injury or trauma; Fall; Blunt trauma; Knee; Right; Additional info: Fall pain TECHNIQUE: Imaging protocol: XR Right knee. Views: 3 views. Total images: 3 COMPARISON: No relevant prior studies available. FINDINGS: Bones/joints: Mild marginal osteophytes are noted. Enthesophyte of the quadriceps tendon insertion site on the patella. No acute fracture nor subluxation. No osseous erosion nor periosteal reaction. Soft tissues: Normal. XR/XR knee RT 3V* [id number] IMPRESSION: No acute osseous pathology. Radiation Dose CTDIVOL = (mGy): DLP = (mGy-cm)
--- NOTE | 2021-01-14 10:07 | XRR_ITS ---
PROCEDURE INFORMATION: Exam: XR Right Clavicle, Complete Exam date and time: 01/14/2021 10:07 AM Age: 60 years old Clinical indication: Injury or trauma; Fall; Blunt trauma (contusions or hematomas); Shoulder; Right; Additional info: Clavicle pain TECHNIQUE: Imaging protocol: XR Right clavicle complete. Views: Any number of views. Total images: 2 COMPARISON: CR (CHEST, ) 01/14/2021 9:56 AM FINDINGS: Bones/joints: Spinal fusion hardware noted. No acute fracture nor subluxation. No osseous erosion nor periosteal reaction. Partial fusion of the right 1st and 2nd rib incidentally noted. Soft tissues: Normal. XR/[place] [id number] IMPRESSION: No acute osseous pathology. Radiation Dose CTDIVOL = (mGy): DLP = (mGy-cm)
--- NOTE | 2021-01-14 10:08 | W.ED.FALL ---
HPI - Fall General: Chief Complaint: Fall Stated Complaint: RIGHT SHOULDER/NECK S/P FALL DOWN 14 STEPS Time Seen by Provider: 01/14/21 09:46 History of Present Illness: HPI Narrative: 60-year-old female presents emergency room via EMS after falling at home. Evidently she tripped on a pass and rolled down the stairs complaining of neck pain right shoulder pain right knee pain. She does not believe she lost consciousness but was stunned. She is in a c-collar on arrival. She is not on any anticoagulants. MD complaint: fall Onset (ago): minute(s) Fall from: standing Fall witnessed: yes, by family Place fall occurred: home Loss of consciousness: None Prolonged down time: no Symptoms prior to fall: none Context: tripped/slipped Location of injury: head and neck Location of injury - extremities: Right: shoulder and knee Associated symptoms-after fall: Reports difficulty walking and neck pain; Denies abdominal pain, chest pain, confusion, headache(s), hematuria, lightheadedness, numbness, short of breath, vertigo or weakness Review of Systems Const: Denies: fever(s), chills, body aches, change in appetite, fatigue or malaise ENMT: Denies: throat pain, ear or mastoid pain, nasal discharge or nasal congestion Card: Denies: chest pain or lightheadedness Resp: Denies: dyspnea, productive cough or non-productive cough GI: Denies: abdominal pain : Denies: hematuria Musc: Reports: neck pain Skin/Breast: Denies: rash or pruritus Neuro: Reports: difficulty walking; Denies: headache(s), vertigo or confusion PFSH ED PFSH: Medical History Diabetes Diastolic dysfunction Fatigue Hypertension Pes anserine bursitis Shortness of breath Type 2 diabetes mellitus Surgical History Hx of cataract surgery Hx of section Hx of decompression of ulnar nerve Hx of hysterectomy Hx of inguinal hernia surgery Hx of neck surgery Hx of right knee surgery Family History Other Cancer Hypertension Parkinson disease Social History Smoking and tobacco status: never smoked Second hand smoke exposure: Yes Alcohol intake: never Physical Exam Const: COMMON NORMALS: no acute distress GENERAL APPEARANCE: cooperative and comfortable ORIENTATION/CONSCIOUSNESS: Yes awake, Yes oriented to person, Yes oriented to place and Yes oriented to time HENMT: COMMON NORMALS: normocephalic, atraumatic and hearing grossly normal bilaterally HEAD & SCALP: normocephalic and atraumatic Neck/C-Spine: COMMON NORMALS: no JVD Resp: COMMON NORMALS: normal respiratory effort, No retractions, No use of accessory muscles and clear to auscultation bilaterally AUSCULTATION: clear to auscultation bilaterally Cardio: COMMON NORMALS: no JVD, regular rate, regular rhythm and No murmurs present (Cardio) RATE: regular rate RHYTHM: regular rhythm GI: COMMON NORMALS: Soft to palpation and No hepatosplenomegaly present AUSCULTATION: Yes normoactive bowel sounds PALPATION: Yes Soft to palpation, No Tenderness to palpation present (GI), No Guarding due to palpation present (GI) and Yes No hepatosplenomegaly present Extremity: COMMON NORMALS: normal to inspection, capillary refill normal, no clubbing, cyanosis or edema, no calf tenderness and no pedal edema Neuro: SENSORIUM/ORIENTATION: Yes oriented to person, Yes oriented to place and Yes oriented to time Skin: COMMON NORMALS: no rashes or lesions noted GENERAL SKIN EXAM: no rashes or lesions noted Course Vital Signs: Vital signs: Vital Signs Temperature 98.2 F 01/14/21 09:47 Pulse Rate 71 01/14/21 10:15 Respiratory Rate 18 01/14/21 13:12 Blood Pressure 133/96 01/14/21 10:15 Pulse Oximetry 96 01/14/21 10:15 MDM - Fall MDM Narrative: Medical decision making narrative: I suspect patient does have a clavicle fracture on reviewing the x-ray and given her pain. Discharge patient in a sling for now discharged home with diclofenac tizanidine however follow-up with Ortho for further evaluation. Lab Data: Labs: Lab Results 01/14/21 01/14/21 01/14/21 10:34 10:34 12:36 WBC 11.1 10^3/uL H 10 ^3/uL (4.0-10.0) RBC 4.40 10^6/uL 10^6 /uL (4.1-5.3) Hgb 12.1 g/dL g/dL (11.5-15.3) Hct 37.2 % % (37.0-47.0) MCV 84.5 fl fl (81-99) MCH 27.5 pg L pg (28.0-34.0) MCHC 32.5 g/dL g/dL (30.0-36.0) RDW 16.2 % H % (12.1-15.1) Plt Count 350 10^3/cmm 10^3 /cmm (130-400) MPV 11.0 fL H fL (7.4-10.4) Neut % (Auto) 65.6 % % Lymph % (Auto) 24.8 % % [place] % (Auto) 5.9 % % Eos % (Auto) 2.5 % % Baso % (Auto) 0.7 % % Neut # (Auto) 7.25 10^3/uL 10^3 /uL (1.8-7.7) Lymph # (Auto) 2.7 10^3/uL 10^3/ uL (0.8-4.8) [place] # (Auto) 0.7 10^3/uL 10^3/ uL (0.2-0.9) Eos # (Auto) 0.3 10^3/uL 10^3/ uL (0.0-0.8) Baso # (Auto) 0.1 10^3/uL 10^3/ uL (0.0-0.1) Nucleated RBC % (a uto) 0 % % Nucleated RBCs # 0.0 /100WBC /100W BC Sodium 134 mmol/L L mmol /L (136-145) Potassium 3.8 mmol/L mmol/L (3.5-5.1) Chloride 98 mmol/L mmol/L (98-107) Carbon Dioxide 23 mmol/L mmol/L (22-29) Anion Gap 16.8 (5-19) BUN 15 mg/dL mg/dL (6-20) Creatinine 0.6 mg/dL mg/dL (0.5-0.9) GFR Calculation 102.7 mL/min mL/m in (90-130) Glucose 146 mg/dL H mg/dL (65-115) Calculated Osmolal ity 281 mOsm/kg L mOs m/kg (285-295) Calcium 9.0 mg/dL mg/dL (8.5-10.5) Total Bilirubin 0.2 mg/dL mg/dL (0.15-1.2) AST 18 U/L U/L (0-32) ALT 16 U/L U/L (0-33) Alkaline Phosphata se 84 IU/L IU/L (35-105) Total Protein 7.2 g/dL g/dL (6.6-8.7) Albumin 3.8 g/dL g/dL (3.5-5.2) Globulin 3.4 g/dL g/dL (1.3-4.6) Urine Color Straw (Yellow) Urine Appearance Clear (CLEAR) Urine pH 8 H (5-7) Ur Specific Gravit y 1.010 (1.005-1.030) Urine Protein Neg (Negative) Urine Glucose (UA) 4+ H (Normal) Urine Ketones Negative (Negative) Urine Blood Neg (Negative) Urine Nitrate Negative (Negative) Urine Bilirubin Neg (Negative) Prot Sulfosalicyli c Acd Negative (Negative) Urine Urobilinogen Norm mg/dL mg/dL (Negative) Ur Leukocyte Danielle ase Negative (Negative) Discharge Plan Discharge Patient Disposition: Home Clinical Impression: Fracture of clavicle Fall Qualifiers: Encounter type: initial encounter Qualified Code(s): W19.XXXA - Unspecified fall, initial encounter Condition: Stable Prescriptions: New diclofenac sodium 75 mg tablet,delayed release (DR/EC) 75 mg PO Q12H PRN (Reason: pain) Qty: 20 RF: 0 tizanidine 4 mg capsule 4 mg PO Q6H PRN (Reason: muscle spasticity) Qty: 20 RF: 0 No Action naproxen 250 mg tablet 250 mg PO BID PRNRF: 0 Contrave 8-90 mg tablet extended release 1 tab PO QAM RF: 0 potassium chloride 10 mEq tablet extended release 10 meq PO DAILY PRN (Reason: edema) RF: 0 pantoprazole [Protonix] 40 mg tablet,delayed release (DR/EC) 40 mg PO BID RF: 0 furosemide [Lasix] 20 mg tablet 20 mg PO DAILY PRN (Reason: edema) RF: 0 loratadine 10 mg capsule 10 mg PO DAILY RF: 0 Jardiance 25 mg tablet 25 mg PO DAILY 90 Days Qty: 90 RF: 3 clonazepam 0.5 mg tablet 1 mg PO .HS RF: 0 venlafaxine 150 mg tablet extended release 24hr 150 mg PO DAILY RF: 0 Victoza 3-Ajit 0.6 mg/0.1 mL (18 mg/3 mL) pen injector 1.8 mg SUBCUT DAILY RF: 0 propranolol 80 mg capsule,extended release 24 hr 80 mg PO .HS RF: 0 ondansetron HCl 4 mg tablet 4 mg PO Q8H PRNRF: 0 (DME) shoulder immobilizer See Rx Instructions .Route .MEDSUPPLY Qty: 1 RF: 0 (DME) Hinged knee brace See Rx Instructions .ROUTE .MEDSUPPLY Qty: 1 RF: 0 losartan-hydrochlorothiazide 50-12.5 mg tablet 1 tab PO DIRECTED RF: 0 isosorbide mononitrate 30 mg tablet extended release 24 hr 30 mg PO BID Qty: 180 RF: 3 amlodipine 5 mg tablet 5 mg PO DAILY Qty: 30 RF: 5 metformin 1,000 mg Tablet Extended Release 24hr 1,000 mg PO BID RF: 0 Discharge Orders: Discharge ED (Routine); Ordered 01/14/21 Ordered By: Cody Rainey Referrals: Flynn Roca MD [Primary Care Provider] - Discharge Diet: Usual diet Discharge Activity: Increase activity as tolerated Patient Instructions: Opioid Safety Activity Restrictions/Additional Instructions: Case management will make arrangements for you to see Ortho for suspected clavicle fracture. Coding Level of Care Code ED Dielectric Machine Operator for Wesley Fwd Exam Comprehensive
[2021-01-14 10:15] VITALS: BP 133/96; PULSE 71; O2SAT 96
[2021-01-14] MEDS: morphine 4 mg/mL SDV 1 mL IM (10:32)
[2021-01-14] MEDS: ondansetron 2 mg/ML SDV 2 mL 4 MG IVP (10:32)
[2021-01-14 10:44] LABS: Basophils # 0.1 10^3/uL (0.0-0.1); Basophils % 0.7 %; Eosinophils # 0.3 10^3/uL (0.0-0.8); Eosinophils % 2.5 %; Hematocrit 37.2 % (37.0-47.0); Hemoglobin 12.1 g/dL (11.5-15.3); Lymphocytes # 2.7 10^3/uL (0.8-4.8); Lymphocytes % 24.8 %; Mean Corpuscular HGB Conc 32.5 g/dL (30.0-36.0); Mean Corpuscular Hemoglobin 27.5 pg (28.0-34.0); Mean Corpuscular Volume 84.5 fl (81-99); Monocytes # 0.7 10^3/uL (0.2-0.9); Monocytes % 5.9 %; Neutrophils # 7.25 10^3/uL (1.8-7.7); Neutrophils % 65.6 %; Nucleated Red Blood Cells % 0 %; Platelet Count 350 10^3/cmm (130-400); Red Cell Distribution Width 16.2 % (12.1-15.1); White Blood Count 11.1 10^3/uL (4.0-10.0)
[2021-01-14 11:17] LABS: Alanine Aminotransferase 16 U/L (0-33); Albumin Level 3.8 g/dL (3.5-5.2); Alkaline Phosphatase 84 IU/L (35-105); Anion Gap 16.8 (5-19); Aspartate Amino Transferase 18 U/L (0-32); Blood Urea Nitrogen 15 mg/dL (6-20); Carbon Dioxide 23 mmol/L (22-29); Chloride 98 mmol/L (98-107); Globulin 3.4 g/dL (1.3-4.6); Glomerular Filtration Rate 102.7 mL/min (90-130); Glucose 146 mg/dL (65-115); Osmolality Calculated 281 mOsm/kg (285-295); Potassium 3.8 mmol/L (3.5-5.1); Sodium 134 mmol/L (136-145); Total Bilirubin 0.2 mg/dL (0.15-1.2); Total Protein 7.2 g/dL (6.6-8.7)
[2021-01-14 12:53] LABS: Add Urine Microscopic? NO; Charge for UA Resulting for Rev
[2021-01-14 13:00] LABS: Protein Urine Neg (Negative); Urine Appearance Clear (CLEAR); Urine Color Straw (Yellow); pH Urine 8 (5-7)
[2021-01-14 13:01] LABS: Bilirubin Urine Neg (Negative); Blood Urine Neg (Negative); Glucose Urine UA 4+ (Normal); Ketones Urine Negative (Negative); Leukocyte Esterase Urine Negative (Negative); Nitrate Urine Negative (Negative); Sulfosalicylic Acid Urine Negative (Negative); Urobilinogen Urine Norm (Negative)
[2021-01-14 13:12] VITALS: RESP 18
[2021-01-14] MEDS: morphine 4 mg/mL SDV 1 mL IVP (13:12)
--- NOTE | 2021-01-16 09:28 | DCPLANNER ---
traffic ii manager had message to schedule a follow up appointment for patient with ortho. traffic ii manager called the ortho clinic, spoke with Sabra, gave clinic patients information. traffic ii manager was told that patients information would be printed and reviewed. Clinic will call patient with appointment information.
--- NOTE | 2021-01-26 15:44 | DCPLANNER ---
Patient had a follow up appointment scheduled for 01.18.[address] Piper at [facility] - patient did attend appointment.
== END 2021-01-14 14:06 | disposition home or self-care (01) ==
PROVIDERS: Emergency Provider Family Medicine; PCP Family Medicine
DX: S42.001A Fracture of unspecified part of right clavicle, initial encounter for closed fracture (principal); Z79.84 Long term (current) use of oral hypoglycemic drugs; E11.9 Type 2 diabetes mellitus without complications; I10 Essential (primary) hypertension; Z77.22 Contact with and (suspected) exposure to environmental tobacco smoke (acute) (chronic); W10.8XXA Fall (on) (from) other stairs and steps, initial encounter
CPT/HCPCS: 70450; 72125; 73000; 73030; 73562; 80053; 81003; 85025; 96372; 96374; 96375; 99284; J2270; J2405

== ENCOUNTER → 2021-01-18 11:12 | Outpatient (BNVA) | payer BC, SELFPAY | PROVIDERS: PCP Family Medicine; Referring Provider Family Medicine; Visit Provider Specialist | DX: S42.009A Fracture of unspecified part of unspecified clavicle, initial encounter for closed fracture (principal); X58.XXXA Exposure to other specified factors, initial encounter; M19.032 Primary osteoarthritis, left wrist | CPT/HCPCS: 73000; 73110 ==

== ENCOUNTER 2021-01-18 14:27 | Outpatient (CLI) | payer BC, SELFPAY | END 2021-01-18 14:28 | disposition home or self-care (01) | LOC: SPT 14:29 | PROVIDERS: PCP Family Medicine; Visit Provider Specialist | DX: Z46.89 Encounter for fitting and adjustment of other specified devices (principal); S83.281D Other tear of lateral meniscus, current injury, right knee, subsequent encounter; X58.XXXD Exposure to other specified factors, subsequent encounter | CPT/HCPCS: 97760; L3670 ==

== ENCOUNTER → 2021-01-30 11:24 | Outpatient (BNVA) | payer BC, SELFPAY | PROVIDERS: PCP Family Medicine; Visit Provider Specialist | DX: S42.009A Fracture of unspecified part of unspecified clavicle, initial encounter for closed fracture (principal); W19.XXXA Unspecified fall, initial encounter; M89.8X1 Other specified disorders of bone, shoulder; M25.532 Pain in left wrist; X58.XXXA Exposure to other specified factors, initial encounter | CPT/HCPCS: 73000; 73110 ==

== ENCOUNTER → 2021-02-20 09:52 | Outpatient (BNVA) | payer BC, SELFPAY | PROVIDERS: PCP Family Medicine; Visit Provider Specialist | DX: M89.8X1 Other specified disorders of bone, shoulder (principal); E66.01 Morbid (severe) obesity due to excess calories; Z68.41 Body mass index [BMI] 40.0-44.9, adult; W19.XXXA Unspecified fall, initial encounter | CPT/HCPCS: 73000 ==

== ENCOUNTER 2021-03-08 08:37 | Outpatient (CLI) | payer BC, SELFPAY ==
--- NOTE | 2021-03-08 08:45 | MR_ITS ---
WS: [id number] MRI RIGHT SHOULDER NONCONTRAST TECHNIQUE: Sagittal T2, coronal T1, T2 and proton density imaging. Axial gradient PDE imaging. CLINICAL INFORMATION: M25.519 - Pain in unspecified shoulder COMPARISON: None. FINDINGS: Moderate arthritis AC joint. Prominent diffuse edema at the AC joint with soft tissue thickening and induration. Associated intra-articular fluid collection. Mild downsloping of the acromion. Slight sub acromial spurring. Distal clavicle appears normal. Edema within the acromion likely contusion. Acromi oclavicular ligaments are likely torn with distention of the joint capsule. No superior translation o f the clavicle relative to the acromion. Small amount of edema involving the anterior coracoclavicular ligaments with partial tear. No signifi cant widening. Recommend correlation with recent trauma. Normal bone marrow signal in the humerus and glenoid. Normal biceps labral anchor. Distal supraspinat us is normal. Normal infraspinatus. Normal teres minor and subscapularis. Normal biceps tendon in the bicipital groove. Glenoid labrum appears grossly normal. MR/MR shoulder RT wo con* [id number] IMPRESSION: 1. Diffuse edema involving the AC joint with small AC joint effusion. Edema wi thin the acromium likely due to contusion. Surrounding soft tissue induration a bout the AC joint. 2. Joint effusion with widening of the AC joint although no superior displacem ent of the clavicle. Acromioclavicular ligaments are likely completely torn wit h intact joint capsule. 3. Small amount of edema with partial tear involving the coracoclavicular liga ments without significant widening. 4. Distal clavicle appears normal. 5. Normal rotator cuff. 6. Normal biceps tendon in the bicipital groove. 7. Normal biceps labral anchor. 8. Normal bone marrow signal in the humerus and glenoid.
== END 2021-03-08 08:38 | disposition home or self-care (01) ==
PROVIDERS: PCP Family Medicine; Visit Provider Specialist
DX: M25.511 Pain in right shoulder (principal); R60.0 Localized edema; M25.411 Effusion, right shoulder
CPT/HCPCS: 73221

== ENCOUNTER 2021-03-20 06:00 | Outpatient (RCR) | payer BC, SELFPAY | END 2021-04-07 23:59 | disposition home or self-care (01) | LOC: SPT 06:00 | PROVIDERS: PCP Family Medicine; Referring Provider Specialist; Visit Provider Specialist | DX: M25.511 Pain in right shoulder (principal) | CPT/HCPCS: 97033; 97110; 97162 ==

== ENCOUNTER 2021-04-08 06:00 | Outpatient (RCR) | payer BC, SELFPAY | END 2021-05-08 23:59 | disposition home or self-care (01) | LOC: SPT 06:00 | PROVIDERS: PCP Family Medicine; Referring Provider Specialist; Visit Provider Specialist | DX: M25.511 Pain in right shoulder (principal) | CPT/HCPCS: 97033; 97110; G0283 ==

== ENCOUNTER 2021-07-28 06:18 | Outpatient (CLI) | payer BC, SELFPAY ==
[2021-07-28 07:23] LABS: Estmated Average Glucose 226; Hemoglobin A1C 9.5 % (4.0-6.0)
[2021-07-28 07:24] LABS: Alanine Aminotransferase 20 U/L (0-33); Albumin Level 4.1 g/dL (3.5-5.2); Alkaline Phosphatase 83 IU/L (35-105); Anion Gap 15.9 (5-19); Aspartate Amino Transferase 22 U/L (0-32); Blood Urea Nitrogen 18 mg/dL (6-20); Calcium 9.3 mg/dL (8.5-10.5); Carbon Dioxide 29 mmol/L (22-29); Chloride 94 mmol/L (98-107); Chol HDL Ratio 1.99 mg/dL (0.0-4.40); Cholesterol 161 mg/dL (0-200); Globulin 2.9 g/dL (1.3-4.6); Glomerular Filtration Rate 85.6 mL/min (90-130); Glucose 288 mg/dL (65-115); HDL Cholesterol 81 mg/dL (60-100); LDL Cholesterol Calculated 53 mg/dL (50-129); LDL HDL Ratio 0.65 RATIO (0.00-3.22); Osmolality Calculated 292 mOsm/kg (285-295); Potassium 3.9 mmol/L (3.5-5.1); Sodium 135 mmol/L (136-145); Total Bilirubin 0.2 mg/dL (0.15-1.2); Triglycerides 135 mg/dL (0-150)
== END 2021-07-28 06:19 | disposition home or self-care (01) ==
LOC: LAB 06:20
PROVIDERS: PCP Family Medicine; Visit Provider Internal Medicine
DX: E11.9 Type 2 diabetes mellitus without complications (principal); E78.5 Hyperlipidemia, unspecified
CPT/HCPCS: 36415; 80053; 80061; 83036

== ENCOUNTER → 2021-09-26 05:40 | Outpatient (BNVA) | payer BC, SELFPAY | PROVIDERS: PCP Family Medicine; Visit Provider Family Medicine | DX: R10.13 Epigastric pain (principal) | CPT/HCPCS: 80053; 83690; 85025; 86140 ==

== ENCOUNTER 2021-09-26 18:06 | Outpatient (CLI) | payer BC, SELFPAY ==
[2021-09-26 18:39] LABS: Basophils # 0.1 10^3/uL (0.0-0.1); Basophils % 0.6 %; Eosinophils # 0.1 10^3/uL (0.0-0.8); Eosinophils % 1.4 %; Hematocrit 41.2 % (37.0-47.0); Lymphocytes # 4.4 10^3/uL (0.8-4.8); Lymphocytes % 44.1 %; Mean Corpuscular Hemoglobin 27.7 pg (28.0-34.0); Mean Corpuscular Volume 81.4 fl (81-99); Mean Platelet Volume 11.9 fL (7.4-10.4); Monocytes # 0.8 10^3/uL (0.2-0.9); Monocytes % 7.6 %; Neutrophils # 4.62 10^3/uL (1.8-7.7); Neutrophils % 45.9 %; Nucleated Red Blood Cells % 0 %; Platelet Count 320 10^3/cmm (130-400); Red Blood Count 5.06 10^6/uL (4.1-5.3); Red Cell Distribution Width 13.7 % (12.1-15.1); White Blood Count 10.1 10^3/uL (4.0-10.0)
[2021-09-26 20:29] LABS: Alanine Aminotransferase 31 U/L (0-33); Albumin Level 4.4 g/dL (3.5-5.2); Alkaline Phosphatase 82 IU/L (35-105); Anion Gap 20.2 (5-19); Aspartate Amino Transferase 34 U/L (0-32); Blood Urea Nitrogen 12 mg/dL (6-20); Calcium 9.3 mg/dL (8.5-10.5); Carbon Dioxide 24 mmol/L (22-29); Chloride 94 mmol/L (98-107); Glomerular Filtration Rate 64.1 mL/min (90-130); Glucose 197 mg/dL (65-115); Lipase 24 U/L (13-60); Osmolality Calculated 285 mOsm/kg (285-295); Potassium 3.2 mmol/L (3.5-5.1); Sodium 135 mmol/L (136-145); Total Bilirubin 0.5 mg/dL (0.15-1.2); Total Protein 7.4 g/dL (6.6-8.7)
== END 2021-09-26 18:07 | disposition home or self-care (01) ==
PROVIDERS: PCP Family Medicine; Visit Provider Family Medicine
DX: R10.13 Epigastric pain (principal)
CPT/HCPCS: 80053; 83690; 85025; 86140

== ENCOUNTER 2021-09-26 18:23 | Outpatient (CLI) | payer BC, SELFPAY ==
--- NOTE | 2021-09-26 18:55 | XRR_ITS ---
PROCEDURE INFORMATION: Exam: XR Complete Acute Abdomen Series Including Chest Exam date and time: 09/26/2021 6:55 PM Age: 61 years old Clinical indication: Abdominal pain; Generalized; Prior surgery; Surgery date: 6+ months; Surgery type: Hysterectomy, gb , ; additional info: Abd. Pain TECHNIQUE: Imaging protocol: Radiologic exam. Complete acute abdomen series, including 2 or more views of the abdomen and a single view chest. COMPARISON: CR Chest 2 views* [id number] 12/03/2016 6:27 PM FINDINGS: Lungs: Normal. No consolidation. Pleural spaces: Normal. No pleural effusions. No pneumothorax. Heart/Mediastinum: Normal. No cardiomegaly. Gastrointestinal tract: Normal. No bowel dilation. Intraperitoneal space: Normal. No free air. Organs: Cholecystectomy clips noted. Bones/joints: ACDF hardware noted in the mid and lower cervical spine. No acute fracture. Soft tissues: Normal. XR/XR acute abdomen series [id number] IMPRESSION: No acute findings.
== END 2021-09-26 18:24 | disposition home or self-care (01) ==
LOC: RAD 18:25
PROVIDERS: PCP Family Medicine; Visit Provider Family Medicine
DX: R10.13 Epigastric pain (principal)
CPT/HCPCS: 74022

== ENCOUNTER → 2021-10-05 12:25 | Outpatient (BNVA) | payer BC, SELFPAY | PROVIDERS: PCP Family Medicine; Visit Provider Family Medicine | DX: R10.13 Epigastric pain (principal) | CPT/HCPCS: 80053; 83690; 85025; 86140 ==

== ENCOUNTER 2021-10-31 10:47 | Outpatient (CLI) | payer OTHER, SELFPAY ==
[2021-10-31 11:50] LABS: Estmated Average Glucose 312; Hemoglobin A1C 12.5 % (4.0-6.0)
[2021-10-31 12:11] LABS: Free T4 Free Thyroxine 1.21 ng/dL (0.82-1.77); Thyroid Stimulating Hormone 2.81 uIU/mL (0.27-4.20)
[2021-11-01 13:13] LABS: T3 Total 142 ng/dL (76-181)
== END 2021-10-31 10:48 | disposition home or self-care (01) ==
LOC: LAB 10:51
PROVIDERS: PCP Family Medicine; Visit Provider Internal Medicine
DX: E11.9 Type 2 diabetes mellitus without complications (principal); E78.5 Hyperlipidemia, unspecified; R23.2 Flushing
CPT/HCPCS: 36415; 83036; 84439; 84443; 84480

== ENCOUNTER 2021-11-03 14:43 | Outpatient (CLI) | payer OTHER, SELFPAY ==
[2021-11-03 15:51] LABS: Total Volume Urine 3700 ml
[2021-11-03 16:10] LABS: Urine Creatinine 32 mg/dL (28-217)
[2021-11-10 07:28] LABS: Calculated Total (E+NE) 81 mcg/24 h (26-121)
== END 2021-11-03 14:44 | disposition home or self-care (01) ==
PROVIDERS: PCP Family Medicine; Visit Provider Internal Medicine
DX: E11.9 Type 2 diabetes mellitus without complications (principal); E78.5 Hyperlipidemia, unspecified; R23.2 Flushing
CPT/HCPCS: 82384; 82570

== ENCOUNTER → 2022-01-08 12:13 | Outpatient (BNVA) | payer OTHER, SELFPAY | PROVIDERS: PCP Family Medicine; Visit Provider Family Medicine | DX: I10 Essential (primary) hypertension (principal); R53.81 Other malaise; R53.83 Other fatigue; M25.50 Pain in unspecified joint; E55.9 Vitamin D deficiency, unspecified; D22.9 Melanocytic nevi, unspecified; Z51.81 Encounter for therapeutic drug level monitoring; E53.8 Deficiency of other specified B group vitamins | CPT/HCPCS: 80053; 82306; 82607; 85025; 85651; 86038; 86141; 86431 ==

== ENCOUNTER → 2022-01-15 14:03 | Outpatient (BNVA) | payer OTHER, SELFPAY | PROVIDERS: PCP Family Medicine; Visit Provider Family Medicine | DX: R05.9 Cough, unspecified (principal) | CPT/HCPCS: 87400; 87426 ==

== ENCOUNTER 2022-03-10 08:48 | Outpatient (CLI) | payer OTHER, SELFPAY ==
[2022-03-10 09:20] LABS: Alanine Aminotransferase 28 U/L (0-33); Albumin Level 4.3 g/dL (3.5-5.2); Alkaline Phosphatase 72 U/L (35-105); Anion Gap 16.5 (5-19); Aspartate Amino Transferase 30 U/L (0-32); Blood Urea Nitrogen 13 mg/dL (6-20); Calcium 9.9 mg/dL (8.5-10.5); Carbon Dioxide 28 mmol/L (22-29); Chloride 94 mmol/L (98-107); Chol HDL Ratio 2.05 mg/dL (0.0-4.40); Cholesterol 133 mg/dL (0-200); Globulin 3.2 g/dL (1.3-4.6); Glomerular Filtration Rate 85.6 mL/min (90-130); Glucose 203 mg/dL (65-115); HDL Cholesterol 65 mg/dL (60-100); LDL Cholesterol Calculated 46 mg/dL (50-129); LDL HDL Ratio 0.71 RATIO (0.00-3.22); Osmolality Calculated 286 mOsm/kg (285-295); Potassium 3.5 mmol/L (3.5-5.1); Sodium 135 mmol/L (136-145); Total Bilirubin 0.4 mg/dL (0.15-1.2); Total Protein 7.5 g/dL (6.6-8.7); Triglycerides 111 mg/dL (0-150)
[2022-03-10 09:25] LABS: Estmated Average Glucose 246; Hemoglobin A1C 10.2 % (4.0-6.0)
[2022-03-10 09:39] LABS: Cortisol Random 16.34 ug/dL (2.47-19.5)
== END 2022-03-10 08:49 | disposition home or self-care (01) ==
LOC: LAB 08:53
PROVIDERS: PCP Family Medicine; Visit Provider Internal Medicine
DX: E78.5 Hyperlipidemia, unspecified (principal); E11.9 Type 2 diabetes mellitus without complications
CPT/HCPCS: 36415; 80053; 80061; 82533; 83036

== ENCOUNTER → 2022-08-17 08:03 | Outpatient (BNVA) | payer OTHER, SELFPAY | PROVIDERS: PCP Family Medicine; Visit Provider Family Medicine | DX: E55.9 Vitamin D deficiency, unspecified (principal); R53.83 Other fatigue; R53.81 Other malaise; E11.9 Type 2 diabetes mellitus without complications; E78.5 Hyperlipidemia, unspecified | CPT/HCPCS: 80053; 80061; 82043; 83036; 83721 ==

== ENCOUNTER 2022-11-05 10:19 | Outpatient (CLI) | payer OTHER, SELFPAY ==
--- NOTE | 2022-11-05 10:30 | CT_ITS ---
WS: [id number] CT ABDOMEN AND PELVIS WITH CONTRAST HISTORY: Lower abdominal mass TECHNIQUE: Imaging performed of the abdomen and pelvis with IV contrast. Single phase imaging of the abdomen. Coronal and sagittal reformats are submitted. All CT scans at [facility] use at [address] one of these dose optimization techniques: automated exposure control; mA and/or kV adjustment per patient size (includes targeted exams where dose is matched to clinical indication); or iterative re construction. IV CONTRAST: Omnipaque 350; 100 mL IV. Oral contrast: No DLP: 828.54 mGy.cm COMPARISON: 01/21/2017 Lower thorax: Lung bases are clear. Heart is normal size. No hiatal hernia. Liver/biliary system: Normal size with no intrahepatic dilatation. Gallbladder: Status post cholecystectomy. Pancreas: Normal size pancreas and pancreatic duct. No adjacent inflammation. Spleen: Normal size spleen. No mass or infarct. Calcified granulomata. Adrenal glands: Normal. Right kidney: Normal. Left kidney: Normal. Aorta: Normal. LEFT gastric artery and the splenic artery arise separately from the aorta. Similar ap pearance to the prior study. Normal variant. Lymphadenopathy: None. Free fluid: None. GI tract: Normal stomach. No small bowel obstruction or wall thickening. Mild diffuse constipation. T he appendix is is not identified. Abdominal wall: Ventral abdominal wall hernias near the umbilicus and just below the umbilicus. Herni as containing fat only. There is an additional inferior midline ventral abdominal wall hernia. Adjace nt surgical clips indicate prior repair. A loop of small bowel closely associated with the abdominal wall hernia which is just above the level of the symphysis pubis. Not causing a significant obstructi on. Pelvis: Prior hysterectomy. Bones: Moderate degenerative spondylitic changes. CT/CT abdomen pelvis w con* [id number] IMPRESSION: 1. Umbilical and periumbilical hernias containing fat only. 2. Additional ventral hernia along the midline just above the level of the sym physis pubis. Postsurgical changes from prior hernia repair. There is a focal a bdominal wall defect suggesting recurrent hernia. There is an adjacent small leonora wel loop closely associated with the orifice of the defect but no obstruction. 3. Prior hysterectomy. 4. Prior cholecystectomy. 5. No GI tract obstruction.
[2022-11-05 10:51] LABS: Blood Urea Nitrogen 11 mg/dL (8-23)
[2022-11-05] MEDS: iohexol 350 mg/mL 500 mL Btl (per mL) IV (10:56)
== END 2022-11-05 10:20 | disposition home or self-care (01) ==
PROVIDERS: PCP Family Medicine; Visit Provider Family Medicine
DX: R19.00 Intra-abdominal and pelvic swelling, mass and lump, unspecified site (principal); K42.9 Umbilical hernia without obstruction or gangrene; K43.9 Ventral hernia without obstruction or gangrene
CPT/HCPCS: 74177; 82565; 84520; Q9967

== ENCOUNTER → 2022-11-16 08:01 | Outpatient (BNVA) | payer OTHER, SELFPAY | PROVIDERS: PCP Family Medicine; Visit Provider Family Medicine | DX: E11.9 Type 2 diabetes mellitus without complications (principal); E78.5 Hyperlipidemia, unspecified; E66.01 Morbid (severe) obesity due to excess calories; Z68.41 Body mass index [BMI] 40.0-44.9, adult; R23.2 Flushing; B37.31 Acute candidiasis of vulva and vagina | CPT/HCPCS: 80053; 80061; 82043; 83036 ==

== ENCOUNTER 2023-02-22 10:29 | Outpatient (CLI) | payer OTHER, SELFPAY ==
--- NOTE | 2023-02-22 10:46 | MM_ITS ---
WS: [id number] VIEWS: MLO and CC views both breasts. 3D digital tomosynthesis is also included in this exam. Baseline study Findings: There was no sign of mass, architectural distortion or suspicious calcification in either breast. The breasts are almost entirely fatty Impression: MM/[place] [id number] BI-RADS: 1-Negative FOLLOW-UP: 1 Year Follow-up This mammogram was also analyzed by the Computer Aided Detection System R2 Imag e Prep Room Supervisor.
== END 2023-02-22 10:30 | disposition home or self-care (01) ==
LOC: RAD 10:29
PROVIDERS: PCP Family Medicine; Visit Provider Family Medicine
DX: Z12.31 Encounter for screening mammogram for malignant neoplasm of breast (principal)
CPT/HCPCS: 77063; 77067

== ENCOUNTER 2023-04-16 08:14 | Outpatient (CLI) | payer OTHER, SELFPAY ==
[2023-04-16 08:59] LABS: Alanine Aminotransferase 16 U/L (0-33); Albumin Level 4.4 g/dL (3.5-5.2); Alkaline Phosphatase 80 U/L (35-105); Anion Gap 15.1 (5-19); Aspartate Amino Transferase 18 U/L (0-32); Blood Urea Nitrogen 12 mg/dL (8-23); Calcium 10.3 mg/dL (8.5-10.5); Carbon Dioxide 31 mmol/L (22-29); Chloride 98 mmol/L (98-107); Chol HDL Ratio 2.01 mg/dL (0.0-4.40); Cholesterol 151 mg/dL (0-200); Globulin 3.4 g/dL (1.3-4.6); Glomerular Filtration Rate 85.4 mL/min (90-130); Glucose 188 mg/dL (65-115); HDL Cholesterol 75 mg/dL (60-100); LDL Cholesterol Calculated 55 mg/dL (50-129); LDL HDL Ratio 0.73 RATIO (0.00-3.22); Osmolality Calculated 295 mOsm/kg (285-295); Potassium 4.1 mmol/L (3.5-5.1); Sodium 140 mmol/L (136-145); Total Bilirubin 0.2 mg/dL (0.15-1.2); Total Protein 7.8 g/dL (6.6-8.7); Triglycerides 105 mg/dL (0-150)
[2023-04-16 09:09] LABS: Creatinine Urine, Random 268 mg/dL (28-217); Microalbum Creatinine Ratio Ur 11 mg/dL (0-20); Microalbumin Random Urine 3 ug/dL (0-20)
[2023-04-16 09:15] LABS: Estmated Average Glucose 171; Hemoglobin A1C 7.6 % (4.0-6.0)
== END 2023-04-16 08:15 | disposition home or self-care (01) ==
LOC: LAB 08:16
PROVIDERS: PCP Family Medicine; Visit Provider Internal Medicine
DX: E11.9 Type 2 diabetes mellitus without complications (principal); E78.5 Hyperlipidemia, unspecified; E66.01 Morbid (severe) obesity due to excess calories; Z68.41 Body mass index [BMI] 40.0-44.9, adult; R23.2 Flushing; B37.31 Acute candidiasis of vulva and vagina
CPT/HCPCS: 36415; 80053; 80061; 82044; 83036

== ENCOUNTER 2023-07-24 14:16 | Outpatient (CLI) | payer OTHER, SELFPAY ==
--- NOTE | 2023-07-24 14:30 | MR_ITS ---
WS: [id number] MRI BRAIN WITH AND WITHOUT CONTRAST HISTORY: Trigeminal neuralgia on the left COMPARISON: 07/11/2020 TECHNIQUE: Multiplanar imaging performed through the brain with MultiHance 20 ml's IV. No acute infarcts are seen. Lee-white matter differentiation is well preserved. Very mild small vess el ischemic changes. No prior infarct. No susceptibility artifacts or prior lacunar infarcts. No mass or abnormal enhancement at the cerebel lopontine angles or involving the trigeminal nerve or Meckel's cave. No crossing vascular loop or mas s. No abnormal enhancement is appreciated. On the T2 sequence there is mild increased T2 signal invol ving the LEFT 7th and 8th cranial nerve but there is no enhancement or abnormality on the other image s. Ventricles and extra-axial spaces are normal. Clivus and pituitary gland are normal. Visualized posterior fossa and brainstem are also normal. Postcontrast images are negative for masses or vascular malformations. Dural venous sinuses are normal. Paranasal sinuses: Well aerated with no significant disease. Mastoid air cells: Normal. Calvarium and scalp: Normal. IMPRESSION: 1. No abnormal enhancement or mass effect upon the 5th, 7th or 8th cranial nerves. No mass or abnorm al signal in Meckel's cave. 2. Mild small vessel ischemic type changes, similar to the prior study from 07/11/2020. 3. No acute hemorrhage or infarct.
[2023-07-24] MEDS: gadobenate dimeglumine 20 mL vial IV (15:04)
== END 2023-07-24 14:17 | disposition home or self-care (01) ==
LOC: RAD 14:16
PROVIDERS: PCP Family Medicine; Visit Provider Family Medicine
DX: G50.0 Trigeminal neuralgia (principal)
CPT/HCPCS: 70553; A9577

== ENCOUNTER 2023-10-30 07:33 | Outpatient (CLI) | payer OTHER, SELFPAY ==
[2023-10-30 08:17] LABS: Estmated Average Glucose 157; Hemoglobin A1C 7.1 % (4.0-6.0)
[2023-10-30 08:20] LABS: Alanine Aminotransferase 6 U/L (0-33); Albumin Level 4.3 g/dL (3.5-5.2); Alkaline Phosphatase 86 U/L (35-105); Anion Gap 14.3 (5-19); Aspartate Amino Transferase 19 U/L (0-32); Blood Urea Nitrogen 14 mg/dL (8-23); Calcium 9.4 mg/dL (8.5-10.5); Carbon Dioxide 28 mmol/L (22-29); Chloride 100 mmol/L (98-107); Chol HDL Ratio 1.94 mg/dL (0.0-4.40); Cholesterol 130 mg/dL (0-200); Globulin 3.1 g/dL (1.3-4.6); Glomerular Filtration Rate 85.1 mL/min (90-130); Glucose 179 mg/dL (65-115); HDL Cholesterol 67 mg/dL (60-100); LDL Cholesterol Calculated 42 mg/dL (50-129); LDL HDL Ratio 0.63 RATIO (0.00-3.22); Osmolality Calculated 291 mOsm/kg (285-295); Potassium 4.3 mmol/L (3.5-5.1); Sodium 138 mmol/L (136-145); Total Bilirubin 0.4 mg/dL (0.15-1.2); Total Protein 7.4 g/dL (6.6-8.7); Triglycerides 107 mg/dL (0-150)
[2023-10-30 08:42] LABS: Creatinine Urine, Random 116 mg/dL (28-217); Microalbum Creatinine Ratio Ur 9 mg/dL (0-20); Microalbumin Random Urine 1 ug/dL (0-20)
== END 2023-10-30 07:34 | disposition home or self-care (01) ==
PROVIDERS: PCP Family Medicine; Visit Provider Internal Medicine
DX: E11.9 Type 2 diabetes mellitus without complications (principal); E78.5 Hyperlipidemia, unspecified
CPT/HCPCS: 36415; 80053; 80061; 82044; 83036

== ENCOUNTER 2024-02-26 17:04 | Outpatient (CLI) | payer OTHER, SELFPAY ==
--- NOTE | 2024-02-26 18:24 | XRR_ITS ---
PROCEDURE INFORMATION: Exam: XR Right Knee Exam date and time: 02/26/2024 6:31 PM Age: 63 years old Clinical indication: Pain; Knee; Right; Prior surgery; Surgery date: 6+ months; Surgery type: Meniscus; Additional info: Right knee pain TECHNIQUE: Imaging protocol: Radiologic exam of the right knee. Views: 3 views. COMPARISON: CR XR knee RT 3V* [id number] 01/14/2021 10:42 AM FINDINGS: Bones/joints: Osseous structures are intact. Negative for fracture. 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 Soft tissues: Normal. XR/XR knee RT 3V* [id number] IMPRESSION: No acute findings. 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
--- NOTE | 2024-02-26 18:24 | XRR_ITS ---
PROCEDURE INFORMATION: Exam: XR Left Knee Exam date and time: 02/26/2024 6:30 PM Age: 63 years old Clinical indication: Pain; Knee; Left; Prior surgery; Surgery date: 6+ months; Surgery type: Meniscus; Additional info: Left knee pain TECHNIQUE: Imaging protocol: Radiologic exam of the left knee. Views: 3 views. COMPARISON: CR XR ankle LT min 3V* [id number] 09/06/2020 6:29 PM FINDINGS: Bones/joints: Osseous structures are intact. Negative for fracture. 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 Soft tissues: Normal. XR/XR knee LT 3V* [id number] IMPRESSION: No acute findings. 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
== END 2024-02-26 17:05 | disposition home or self-care (01) ==
PROVIDERS: PCP Family Medicine; Visit Provider Family Medicine
DX: M17.0 Bilateral primary osteoarthritis of knee (principal)
CPT/HCPCS: 73562

== ENCOUNTER 2024-05-01 07:49 | Outpatient (CLI) | payer OTHER, SELFPAY ==
[2024-05-01 08:31] LABS: Creatinine Urine, Random 273 mg/dL (28-217); Microalbum Creatinine Ratio Ur 15 mg/dL (0-20); Microalbumin Random Urine 4 ug/dL (0-20)
[2024-05-01 08:32] LABS: Estmated Average Glucose 169; Hemoglobin A1C 7.5 % (4.0-6.0)
[2024-05-01 08:37] LABS: Alanine Aminotransferase 19 U/L (0-33); Albumin Level 4.6 g/dL (3.5-5.2); Alkaline Phosphatase 106 U/L (35-105); Anion Gap 15.3 (5-19); Aspartate Amino Transferase 26 U/L (0-32); Blood Urea Nitrogen 19 mg/dL (8-23); Calcium 10.1 mg/dL (8.5-10.5); Carbon Dioxide 30 mmol/L (22-29); Chloride 99 mmol/L (98-107); Chol HDL Ratio 2.66 mg/dL (0.0-4.40); Cholesterol 186 mg/dL (0-200); Globulin 3.5 g/dL (1.3-4.6); Glomerular Filtration Rate 85.1 mL/min (90-130); Glucose 173 mg/dL (65-115); HDL Cholesterol 70 mg/dL (60-100); LDL Cholesterol Calculated 95 mg/dL (50-129); LDL HDL Ratio 1.36 RATIO (0.00-3.22); Osmolality Calculated 296 mOsm/kg (285-295); Potassium 4.3 mmol/L (3.5-5.1); Sodium 140 mmol/L (136-145); Total Bilirubin 0.4 mg/dL (0.15-1.2); Total Protein 8.1 g/dL (6.6-8.7); Triglycerides 107 mg/dL (0-150)
== END 2024-05-01 07:50 | disposition home or self-care (01) ==
LOC: LAB 07:51
PROVIDERS: PCP Family Medicine; Visit Provider Internal Medicine
DX: E11.9 Type 2 diabetes mellitus without complications (principal)
CPT/HCPCS: 36415; 80053; 80061; 82044; 83036

== ENCOUNTER 2024-06-03 10:07 | Outpatient (CLI) | payer OTHER, SELFPAY ==
--- NOTE | 2024-06-03 10:15 | MR_ITS ---
WS: [id number] MRI LEFT KNEE HISTORY: Left knee pain COMPARISON: Radiographs 02/26/2024 Anterior cruciate ligament: Intact. Posterior cruciate ligament: Intact. Medial collateral ligament: Mild edema surrounding the MCL. Increased T2 signal in the proximal MCL along with thinning. Extruded meniscus and osteophyte are displacing the MCL from the joint line. Posterior lateral corner structures: Intact. Medial menisci: Abnormal shape of the posterior horn. Significant blunting of the free edge consistent with a tear. Posterior meniscus is smaller caliber and globular in shape Lateral meniscus: Intact. Normal signal, size and shape. Extensor mechanism: Distal quadriceps tendon is normal. Mild tendinopathy of the patellar tendon. Fluid and soft tissue: Moderate to large suprapatellar joint effusion. There are few small intra-articular bodies present. No Ramachandran's cyst. Osseous and articular structures: Patellofemoral compartment: Moderate patellofemoral joint space narrowing. Osteophytes along the posterior inferior surface of the patella encroaching upon the femur. Moderate diffuse chondromalacia. No fracture or marrow edema within the patella. Medial compartment: Marked narrowing of the medial compartment with near complete loss of cartilage. Near bone upon bone with marrow edema on both sides of the joint space. Lateral compartment: Mild narrowing of the lateral compartment. No fracture or marrow edema. Minimal fissuring of the cartilage. MR/MR knee LT wo con* [id number] IMPRESSION: 1. Partial tear of the superior MCL with thinning of the ligament. 2. Extruded medial meniscus with displacement of the MCL. 3. Marked narrowing of the medial compartment with near complete loss of carti deidra and reactive marrow edema in the femoral condyle and tibial plateau. 4. Torn posterior horn of the medial meniscus. Marked blunting of the free edg e which is most likely related to radial tear. Remaining posterior horn is glob ular in shape. Globular shape may be secondary to an adjacent meniscal fragment . 5. Moderate patellofemoral osteoarthritis. Moderate diffuse chondromalacia.
== END 2024-06-03 10:08 | disposition home or self-care (01) ==
LOC: RAD 10:08
PROVIDERS: PCP Family Medicine; Visit Provider Family Medicine
DX: M25.562 Pain in left knee (principal); S83.412A Sprain of medial collateral ligament of left knee, initial encounter; X58.XXXA Exposure to other specified factors, initial encounter; R93.6 Abnormal findings on diagnostic imaging of limbs; S83.242A Other tear of medial meniscus, current injury, left knee, initial encounter; M17.12 Unilateral primary osteoarthritis, left knee; M94.262 Chondromalacia, left knee; M25.762 Osteophyte, left knee
CPT/HCPCS: 73721

== ENCOUNTER 2024-09-06 10:28 | Outpatient (CLI) | payer OTHER, SELFPAY ==
[2024-09-06 11:04] LABS: Estmated Average Glucose 163; Hemoglobin A1C 7.3 % (4.0-6.0)
[2024-09-06 11:07] LABS: Alanine Aminotransferase 16 U/L (0-33); Albumin Level 4.4 g/dL (3.5-5.2); Alkaline Phosphatase 94 U/L (35-105); Anion Gap 15.1 (5-19); Aspartate Amino Transferase 21 U/L (0-32); Blood Urea Nitrogen 15 mg/dL (8-23); Calcium 9.6 mg/dL (8.5-10.5); Carbon Dioxide 25 mmol/L (22-29); Chloride 103 mmol/L (98-107); Cholesterol 161 mg/dL (0-200); Globulin 3.4 g/dL (1.3-4.6); Glomerular Filtration Rate 101.3 mL/min (90-130); Glucose 130 mg/dL (65-115); HDL Cholesterol 67 mg/dL (60-100); LDL Cholesterol Calculated 70 mg/dL (50-129); LDL HDL Ratio 1.04 RATIO (0.00-3.22); Osmolality Calculated 291 mOsm/kg (285-295); Potassium 4.1 mmol/L (3.5-5.1); Sodium 139 mmol/L (136-145); Total Bilirubin 0.3 mg/dL (0.15-1.2); Total Protein 7.8 g/dL (6.6-8.7); Triglycerides 119 mg/dL (0-150)
[2024-09-06 11:21] LABS: Creatinine Urine, Random 327 mg/dL (28-217); Microalbum Creatinine Ratio Ur 12 mg/dL (0-20); Microalbumin Random Urine 4 ug/dL (0-20)
== END 2024-09-06 10:29 | disposition home or self-care (01) ==
PROVIDERS: PCP Family Medicine; Visit Provider Internal Medicine
DX: E11.9 Type 2 diabetes mellitus without complications (principal); E78.5 Hyperlipidemia, unspecified; E66.01 Morbid (severe) obesity due to excess calories; Z68.41 Body mass index [BMI] 40.0-44.9, adult
CPT/HCPCS: 36415; 80053; 80061; 82044; 83036

== ENCOUNTER 2024-12-14 08:37 | Outpatient (RCR) | payer OTHER, SELFPAY | END 2025-01-05 23:59 | disposition home or self-care (01) | LOC: SPT 08:37 | PROVIDERS: Visit Provider Student in an Organized Health Care Education/Training Program | DX: Z47.1 Aftercare following joint replacement surgery (principal); Z96.652 Presence of left artificial knee joint | CPT/HCPCS: 97110; 97161 ==

== ENCOUNTER 2025-01-06 05:00 | Outpatient (RCR) | payer OTHER, SELFPAY | END 2025-02-05 23:59 | disposition home or self-care (01) | LOC: SPT 05:00 | PROVIDERS: Visit Provider Student in an Organized Health Care Education/Training Program | DX: Z47.1 Aftercare following joint replacement surgery (principal); Z96.652 Presence of left artificial knee joint | CPT/HCPCS: 97110; 97530 ==

== ENCOUNTER 2025-02-06 05:00 | Outpatient (RCR) | payer OTHER, SELFPAY | END 2025-03-07 23:59 | disposition home or self-care (01) | LOC: SPT 05:00 | PROVIDERS: PCP Family Medicine; Visit Provider Student in an Organized Health Care Education/Training Program | DX: Z47.1 Aftercare following joint replacement surgery (principal); Z96.652 Presence of left artificial knee joint | CPT/HCPCS: 97110; 97164 ==

== ENCOUNTER 2025-03-08 05:00 | Outpatient (RCR) | payer OTHER, SELFPAY | END 2025-03-15 09:24 | disposition home or self-care (01) | LOC: SPT 05:00 | PROVIDERS: PCP Family Medicine; Visit Provider Student in an Organized Health Care Education/Training Program | DX: Z47.1 Aftercare following joint replacement surgery (principal); Z96.652 Presence of left artificial knee joint | CPT/HCPCS: 97110 ==